=== PATIENT | male | born 1985 | race Caucasian/White ===

== ENCOUNTER 2018-07-09 02:06 | Emergency (ER) | payer OTHER ==
[~2018-07-09] VITALS: Ht 180.3 cm; Wt 84.1 kg
[2018-07-09] MEDS ORDERED: JANU50TA8 PO (02:15)
[2018-07-09] MEDS ORDERED: JARD1TAB3 PO (02:15)
[2018-07-09] MEDS ORDERED: BENA25CA4 PO (04:59)
[2018-07-09] MEDS ORDERED: PRED20TA PO (04:59)
[2018-07-09] MEDS ORDERED: PEPC1TAB5 PO (04:59)
[2018-07-09] MEDS ORDERED: diphenhydrAMINE 25 MG CAP PO ONE (05:00)
[2018-07-09] MEDS ORDERED: predniSONE 20 MG TAB PO ONE (05:00)
[2018-07-09] MEDS ORDERED: FAMOTIDINE 20 MG TAB PO ONE (05:00)
[2018-07-09 05:14] VITALS: BP 116/72
== END 2018-07-09 05:15 | disposition home or self-care (01) ==
LOC: M ED 02:06
DX: R21 Rash and other nonspecific skin eruption (principal); T78.40XA Allergy, unspecified, initial encounter; X58.XXXA Exposure to other specified factors, initial encounter; Y92.89 Other specified places as the place of occurrence of the external cause; E11.9 Type 2 diabetes mellitus without complications; Z79.84 Long term (current) use of oral hypoglycemic drugs

== ENCOUNTER → 2019-08-30 | Outpatient (CLI) | payer OTHER ==
[~2019-08-30] MED LIST: BENA25CA4 PO; JANU50TA8 PO; JARD1TAB3 PO; PEPC1TAB5 PO; PRED20TA PO
[2019-08-30 16:34] LABS: HEMATOCRIT 49.7 % (42.0-52.0); MEAN CORPUSCULAR HGB CONC 34.2 g/dl (32.0-36.5); MEAN CORPUSCULAR VOLUME 87.8 fl (80.0-96.0); PLATELET COUNT, AUTOMATED 319 10^3/uL (150-450); RED BLOOD COUNT 5.66 10^6/uL (4.30-6.10); WHITE BLOOD COUNT 11.1 10^3/uL (4.0-10.0)
[2019-08-30 16:37] LABS: BLOOD UREA NITROGEN 24 MG/DL (7-18); CALCIUM LEVEL 9.6 MG/DL (8.5-10.1); CARBON DIOXIDE LEVEL 27 MEQ/L (21-32); CHLORIDE LEVEL 105 MEQ/L (98-107); CREATININE FOR GFR 1.01 MG/DL (0.70-1.30); GLOMERULAR FILTRATION RATE > 60.0 (>60); GLUCOSE, FASTING 199 MG/DL (70-100); POTASSIUM SERUM 4.2 MEQ/L (3.5-5.1); SODIUM LEVEL 139 MEQ/L (136-145)
[2019-08-30 17:57] LABS: INR 0.91
[2019-08-30 17:58] LABS: PARTIAL THROMBOPLASTIN TIME 28.6 SECONDS (25.0-38.4)
== END ==
LOC: M WUC 14:09
PROVIDERS: ATTEND Surgery
DX: I82.401 Acute embolism and thrombosis of unspecified deep veins of right lower extremity (principal)

== ENCOUNTER → 2020-06-16 | Outpatient (CLI) | payer OTHER ==
--- NOTE | 2020-06-16 13:43 | REP ---
INDICATION: RIGHT LEG PAIN, RO DVT COMPARISON: None. TECHNIQUE: Haynes scale and color Doppler evaluation using linear high frequency transducer. FINDINGS: Ultrasound examination of the right lower extremity deep venous structures from the common femoral vein to the popliteal vein demonstrates normal compressibility flow and wave patterns in response to respiration and augmentation. There is no evidence for deep venous thrombosis. IMPRESSION: No evidence for deep venous thrombosis. <Electronically signed by Alex Heredia > 06/16/20 [id number]
== END ==
LOC: M RAD 13:12
PROVIDERS: ATTEND Surgery
DX: M79.604 Pain in right leg (principal)

== ENCOUNTER → 2020-07-31 | Outpatient (CLI) | payer OTHER ==
[~2020-07-31] MED LIST changes: +ISOVUE-300 61% 50ML VIAL As Ordered ONE; +PROHANCE 279.3MG/ML 5ML VIAL As Ordered ONE
--- NOTE | 2020-07-31 09:46 | REP ---
INDICATION: PAIN IN RT HIP COMPARISON: None. TECHNIQUE: Coronal T1, STIR through the pelvis, axial, coronal, sagittal T2 fat sat, post arthrogram axial T1 fat sat, coronal T1 fat sat, sagittal T1 fat sat right hip. FINDINGS: The visualized osseous structures demonstrate no occult fracture. There is no evidence of avascular necrosis. There is minimal marrow edema in the superolateral acetabulum with associated [id number] chondromalacia at that location. There is a partial tear of the superior labrum. The remaining portions of the labrum appear intact. No paralabral cyst is seen. The surrounding soft tissue structures demonstrate no abnormal signal. There is no evidence for significant greater trochanteric tendonobursitis. No other muscle or tendon abnormality is seen in the region of the right hip. The visualized intrapelvic structures appear unremarkable. There is no joint effusion. IMPRESSION: Partial tear superior labrum. 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 <Electronically signed by Js Haynes > 07/31/20 [id number]
--- NOTE | 2020-07-31 17:18 | REP ---
INDICATION: PAIN IN RT HIP. COMPARISON: None TECHNIQUE: The procedure was performed by BRIGID Dawn, under the direct supervision of Dr. Haynes. The benefits and risks of the procedure were explained to the patient, and an informed consent was obtained. Directly prior to the start of the procedure, a formal time-out was completed in the procedure room. The right femoral neck joint space was localized using fluoroscopic guidance. The skin was prepped and draped in a sterile fashion. Approximately 5 mL of 1% Lidocaine 10 mg/ml was used as a local anesthetic. Using fluoroscopic guidance, a #22 gauge spinal needle was inserted and advanced into the right femoral neck joint space. Approximately 2 mL of Isovue 300 was injected to verify placement. Twelve mL of a solution containing 20 mL of sterile saline and 0.15 mL of ProHance was injected into the joint space. The needle was removed and the patient was taken to MRI for post procedural imaging. FINDINGS: The patient tolerated the procedure well and there were no immediate complications. IMPRESSION: Fluoroscopic guided right hip MRI arthrogram injection. 0.1 minutes of fluoroscopy time was utilized for this procedure. Some fluoroscopic images are performed with last image hold technology. These images require no additional radiation. <Electronically signed by Sienna Colbert > 07/31/20 [id number] <Electronically signed by Js Haynse > 07/31/20 [id number]
== END ==
LOC: M RADPRO 06:19
PROVIDERS: ATTEND Orthopaedic Surgery
DX: S73.191A Other sprain of right hip, initial encounter (principal); M94.251 Chondromalacia, right hip; M25.551 Pain in right hip; X58.XXXA Exposure to other specified factors, initial encounter; Y92.89 Other specified places as the place of occurrence of the external cause; Y93.89 Activity, other specified; Y99.8 Other external cause status
CPT/HCPCS: 27093; 73723; 77002; A9576; Q9967

== ENCOUNTER → 2021-02-17 | Outpatient (REF) | payer OTHER ==
[~2021-02-17] MED LIST changes: -ISOVUE-300 61% 50ML VIAL As Ordered ONE; -PROHANCE 279.3MG/ML 5ML VIAL As Ordered ONE
== END ==
LOC: M SMT 13:20
PROVIDERS: ATTEND Urology
DX: Z30.2 Encounter for sterilization (principal)